=== PATIENT | male | born 2000 | race Caucasian/White ===

== ENCOUNTER 2019-05-08 14:59 | Emergency (ER) | payer BC, OTHER ==
[2019-05-08 15:42] VITALS: BP 122/55
--- NOTE | 2019-05-08 16:05 | UC ---
UC General HPI - HPI Summary HPI Summary: 18-year-old male comes in with a chief complaint of feeling ill and having left upper quadrant left flank pain. 4 days ago he started with sore throat and sweats and fatigue. 2 days ago he started with pain in his left upper quadrant left flank. Patient had mononucleosis several years ago and is wondering if he is mononucleosis now. Tells me that the abdominal pain started gradually is an been getting worse. He reports is about a 6 out of 10 right now. He ended up working out and it was a 12 out of 10. During the night early this morning about 3 AM the pain was also very severe. He has been having sweats no fevers measured. He is nauseous has not been able to eat today.. No rash. - History of Current Complaint Chief Complaint: UCGeneralIllness Stated Complaint: BACK PAIN, FATIGUE Time Seen by Provider: 05/08/19 15:52 Pain Intensity: 7 - Allergy/Home Medications Allergies/Adverse Reactions: Allergies Allergy/AdvReac Type Severity Reaction Status Date / Time Penicillins Allergy Unknown Verified 05/08/19 15:42 Reaction Details Home Medications: Home Medications NK [No Home Medications Reported] 05/08/19 [History Confirmed 05/08/19] PMH/Surg Hx/FS Hx/Imm Hx Previously Healthy: Yes - HX MONO - Surgical History Surgical History: None - Family History Known Family History: Positive: Non-Contributory - Social History Alcohol Use: Rare Substance Use Type: None Smoking Status (MU): Never Smoked Tobacco Review of Systems All Other Systems Reviewed And Are Negative: Yes Constitutional: Positive: Fatigue, Other - SEE HPI Skin: Positive: Negative Eyes: Positive: Negative ENT: Positive: Sore Throat, Nasal Discharge Respiratory: Positive: Negative Cardiovascular: Positive: Negative Gastrointestinal: Positive: Abdominal Pain, Nausea Genitourinary: Positive: Negative Motor: Positive: Negative Neurovascular: Positive: Negative Musculoskeletal: Positive: Negative Neurological: Positive: Negative Psychological: Positive: Negative Is Patient Immunocompromised?: No Physical Exam Triage Information Reviewed: Yes Appearance: No Pain Distress, Well-Nourished, Ill-Appearing - MILD Vital Signs: Initial Vital Signs Temp 98.3 F 05/08/19 15:37 Pulse 74 05/08/19 15:37 Resp 16 05/08/19 15:37 BP 122/55 05/08/19 15:37 Pulse Ox 98 05/08/19 15:37 Vital Signs Reviewed: Yes Eye Exam: Normal Eyes: Positive: Conjunctiva Clear ENT: Positive: Pharyngeal erythema, Nasal congestion, TMs normal Neck: Positive: Supple Respiratory: Positive: Lungs clear, Normal breath sounds, No respiratory distress Cardiovascular: Positive: RRR Abdomen Description: Positive: CVA Tenderness (L) - Mild left upper quadrant tenderness to palpation. Bowel Sounds: Positive: Present Musculoskeletal: Positive: Strength Intact, ROM Intact Neurological: Positive: Alert, Muscle Tone Normal Psychological: Positive: Age Appropriate Behavior Skin: Positive: Other - No rash over the area of pain. Course/Dx - Course Course Of Treatment: Patient's symptoms may be due to early mononucleosis however the pain at the location of the spleen in the left upper quadrant left flank is excessive with the patient reportedly had at times being 12 out of 10 therefore I recommended further evaluation in the emergency department. Patient is to go by POV. I did discuss this with a provider at the [facility] emergency department. - Diagnoses Provider Diagnosis: LUQ abdominal pain, Left flank pain Discharge ED - Sign-Out/Discharge Documenting (check all that apply): Patient Departure All imaging exams completed and their final reports reviewed: No Studies - Discharge Plan Condition: Stable Disposition: HOME-RECOMMEND TO ED Referrals: [facility] [place] [place] [facility] [Outside] Additional Instructions: GO DIRECTLY TO THE EMERGENCY DEPARTMENT FOR FURTHER EVALUATION AND CARE OF YOUR LEFT UPPER QUADRANT AND LEFT FLANK PAIN. - Billing Disposition and Condition Condition: STABLE Disposition: Home-Recommend to ED
== END 2019-05-08 16:10 | disposition home health service (06) ==
LOC: UCCORT 14:59
DX: R10.12 Left upper quadrant pain (principal); R10.9 Unspecified abdominal pain; Z88.0 Allergy status to penicillin
CPT/HCPCS: 99202; G0463

== ENCOUNTER 2019-05-08 17:38 | Emergency (ER) | payer BC, OTHER ==
[2019-05-08 18:23] VITALS: BP 113/67
== END 2019-05-08 21:05 | disposition left against medical advice (07) ==
LOC: ED 17:38
DX: Z53.21 Procedure and treatment not carried out due to patient leaving prior to being seen by health care provider (principal); R10.30 Lower abdominal pain, unspecified; Z88.0 Allergy status to penicillin
CPT/HCPCS: 99282